=== PATIENT | male | born 1955 | race Caucasian/White ===

== ENCOUNTER → 2023-09-08 | Outpatient (CLI) | payer MEDICARE, MEDICAID, SELFPAY ==
--- NOTE | 2023-09-08 12:28 | MRI_ITS ---
STUDY: MRI BRAIN WITH AND WITHOUT CONTRAST REASON FOR EXAM: Male, 68 years old. UNSPECIFIED VISUAL LOSS TECHNIQUE: Standardized multiplanar fat and water weighted pulse sequences were obtained. IV 14cc clariscan was administered for the contrast portion of the examination. COMPARISON: None. FINDINGS: Normal size of the ventricles and extra-axial spaces for the patient''s age. Normal white matter tracts of the supratentorial brain. Normal bilateral basal ganglia. Normal thalami. There is no extra-axial fluid accumulation. Normal flow voids within the major intracranial circulation suggesting patency by spin echo criteria. Normal venous enhancement. There is no enhancing intra-axial or extra-axial abnormality. Normal sella turcica, pituitary gland, infundibular stalk, optic chiasm and hypothalamus. Normal tectal plate and pineal gland. Normal midbrain, samanta and medulla. Normal cerebellum. Normal basal cisterns. Normal bilateral temporal bones. Normal bilateral internal auditory canals. No demonstrated orbital abnormality, within the constraints of a routine brain study. Normal visualized paranasal sinuses. Normal calvarium and skull base. Normal visualized soft tissue structures. Normal visualized upper cervical spine. MRI/Brain W/WO Contrast IMPRESSION: Normal unenhanced and enhanced MRI of the brain. Electronically Signed: Leoncio Bertrand MD at 16:07 EDT ,
--- NOTE | 2023-09-08 12:40 | RAD_ITS ---
STUDY: X-RAY - ORBITS REASON FOR EXAM: Male, 68 years old. H/O BULLET/SCHRAPNEL REMOVED FROM L EYE TECHNIQUE: 2 view(s) of the orbits were obtained. COMPARISON: None. FINDINGS: Normal bilateral orbits without a metallic orbital foreign body. Normal visualized facial bones. Normal paranasal sinuses. The soft tissue structures are unremarkable. RAD/Orbits for Foreign Body IMPRESSION: No demonstrated metallic orbital foreign body. The patient is cleared for an MRI examination. Electronically Signed: Kiko Long MD at 12:56 EDT ,
[2023-09-08 13:06] LABS: CREATININE FINGERSTICK 1.1 mg/dL (0.70-1.30); EGFR FINGERSTICK > 60.0000 mL/min (>60)
== END | disposition home or self-care (01) ==
LOC: MRI 12:16
PROVIDERS: Referring Provider Family Medicine; Visit Provider Family Medicine
DX: H54.7 Unspecified visual loss (principal)
CPT/HCPCS: 70030; 70553; A9575